=== PATIENT | male | born 1970 | race Caucasian/White ===

== ENCOUNTER 2016-09-04 20:36 | Emergency (ER) | payer SELFPAY ==
[~2016-09-04] VITALS: Ht 175.3 cm; Wt 96.8 kg
[~2016-09-04 20:36] MED LIST: AMLO5TAB2; LISI5TAB7 PO; METO25TA35 PO
[2016-09-04 21:33] LABS: BLOOD UREA NITROGEN 26 mg/dL (7-18)
[2016-09-04 21:38] LABS: IS PT STATUS REG ER OR PRE ER? YES
[2016-09-04 22:27] VITALS: BP 128/95
== END 2016-09-04 22:29 | disposition home or self-care (01) ==
LOC: ED 22:11
DX: T50.905A Adverse effect of unspecified drugs, medicaments and biological substances, initial encounter (principal); R07.89 Other chest pain; I10 Essential (primary) hypertension; Y92.9 Unspecified place or not applicable
CPT/HCPCS: 36415; 71010; 80048; 82040; 83880; 84484; 85025; 93005; 99285

== ENCOUNTER 2016-10-16 21:56 | Emergency (ER) | payer SELFPAY ==
[~2016-10-16] VITALS: Ht 177.8 cm; Wt 94.2 kg
[2016-10-16 23:26] LABS: ASPARTATE AMINO TRANSFERASE 13 U/L (15-37); BLOOD UREA NITROGEN 36 mg/dL (7-18)
[2016-10-16 23:28] LABS: HEMATOCRIT 38.6 % (39.2-51.8); HEMOGLOBIN 12.9 g/dL (13.7-18.0); WHITE BLOOD COUNT 12.1 x10^3/uL (3.4-10)
[2016-10-16 23:32] LABS: IS PT STATUS REG ER OR PRE ER? YES
[2016-10-17] MEDS ORDERED: MAALOX/HYOSCYAMINE/LIDOCAINE 45 ML BTL PO ONE
[2016-10-17] MEDS ORDERED: MAALOX/HYOSCYAMINE/LIDOCAINE 45 ML BTL ONE (00:18)
[2016-10-17 00:19] LABS: PATH.CAST-FLAG NOT PRESENT; SPERM-FLAG NOT PRESENT; SRC-FLAG NOT PRESENT; XTAL-FLAG NOT PRESENT; YLC-FLAG NOT PRESENT
[2016-10-17 00:26] VITALS: BP 120/80
[2016-10-17] MEDS ORDERED: ALBUTEROL/IPRATROPIUM 2.5MG/0.5MG, 3 ML NPPB ONE (00:30)
[2016-10-17] MEDS ORDERED: ALBUTEROL/IPRATROPIUM 2.5MG/0.5MG, 3 ML ONE (00:34)
== END 2016-10-17 01:09 | disposition home or self-care (01) ==
LOC: ED 23:10
DX: J98.01 Acute bronchospasm (principal); R06.2 Wheezing; K21.0 Gastro-esophageal reflux disease with esophagitis; I10 Essential (primary) hypertension
CPT/HCPCS: 36415; 71010; 80053; 81001; 83690; 83880; 84484; 85025; 93005; 94640; 99285; J7620

== ENCOUNTER 2017-02-08 10:03 | Observation (INO) | payer OTHER ==
[~2017-02-08] VITALS: Ht 177.8 cm; Wt 94.8 kg
[2017-02-08] MEDS ORDERED: ASPIRIN 81 MG TABLET CHEW PO ONE (11:00)
[2017-02-08] MEDS ORDERED: MORPHINE SULFATE 4 MG/ML, 1ML IVPush PRN (11:00)
[2017-02-08] MEDS ORDERED: ONDANSETRON 2MG/ML, 2ML IVPush ONE (11:00)
[2017-02-08] MEDS ORDERED: SODIUM CHLORIDE FLUSH 10ML SYR IVF ONE (11:00)
[2017-02-08] MEDS ORDERED: NITROGLYCERIN SINGLE TAB 0.4 MG SL PRN (11:00)
[2017-02-08] MEDS ORDERED: ONDANSETRON 2MG/ML, 2ML ONE (11:26)
[2017-02-08] MEDS ORDERED: ASPIRIN 81 MG TABLET CHEW ONE (11:27)
[2017-02-08] MEDS ORDERED: MORPHINE SULFATE 4 MG/ML, 1ML ONE (11:27)
[2017-02-08 11:34] LABS: ALBUMIN 3.4 g/dL (3.4-5.0); ANION GAP 6 mmol/L (5-15); CALCIUM 8.7 mg/dL (8.5-10.1); CHLORIDE 112 mmol/L (98-107); CREATININE 2.48 mg/dL (0.7-1.3)
[2017-02-08 11:36] LABS: BASOPHILS # (AUTO) 0.06 x10^3/uL (0-0.1); BASOPHILS % (AUTO) 1 % (0-1); EOSINOPHILS # (AUTO) 0.35 x10^3/uL (0-0.4); EOSINOPHILS % (AUTO) 4 % (1-7); LYMPHOCYTES # (AUTO) 1.85 x10^3/uL (1-3.4); LYMPHOCYTES % (AUTO) 23 % (22-44); MD NO; MEAN CORPUSCULAR HEMOGLOBIN 27.6 pg (27.5-34.5); MEAN CORPUSCULAR HGB CONC 33.4 g/dL (33.2-36.2); MEAN CORPUSCULAR VOLUME 82.6 fL (81-97); MEAN PLATELET VOLUME 8.5 fL (7.4-10.4); MONOCYTES # (AUTO) 0.78 x10^3/uL (0.2-0.8); MONOCYTES % (AUTO) 10 % (2-9); NEUTROPHILS # (AUTO) 5.07 x10^3/uL (1.8-6.8); NEUTROPHILS % (AUTO) 63 % (42-75); PLATELET COUNT 294 x10^3/uL (130-400); RED BLOOD COUNT 4.87 x10^6/uL (4.38-5.82); RED CELL DISTRIBUTION WIDTH 13.8 % (9.4-14.8)
[2017-02-08 11:38] LABS: TROPONIN I < 0.015 ng/mL (0.000-0.045)
[2017-02-08] MEDS ORDERED: SODIUM CHLORIDE 0.9% 1,000 ML IV SCH (13:24)
[2017-02-08] MEDS ORDERED: BISACODYL 10 MG SUPP PR PRN (13:30)
[2017-02-08] MEDS ORDERED: hydrALAzine 20 MG/ML, 1ML IVPush PRN (13:30)
[2017-02-08] MEDS ORDERED: ASPIRIN 325 MG TABLET EC PO SCH (13:30)
[2017-02-08] MEDS ORDERED: ONDANSETRON ODT 4 MG PO PRN (13:30)
[2017-02-08] MEDS ORDERED: ACETAMINOPHEN 325 MG TABLET PO PRN (13:30)
[2017-02-08] MEDS ORDERED: NITROGLYCERIN 0.4 MG BOTTLE (25 TABS) SL PRN (13:30)
[2017-02-08] MEDS ORDERED: ONDANSETRON 2MG/ML, 2ML IVPush PRN (13:30)
[2017-02-08] MEDS ORDERED: ACETAMINOPHEN 325 MG TABLET ONE (13:36)
[2017-02-08 15:33] VITALS: BP 128/81
[2017-02-08 15:41] LABS: TROPONIN I < 0.015 ng/mL (0.000-0.045)
[2017-02-08] MEDS ORDERED: LISI-167 PO (15:44)
[2017-02-08] MEDS ORDERED: DOCUSATE 100 MG CAPSULE PO PRN (21:00)
== END 2017-02-08 17:08 | disposition home or self-care (01) ==
LOC: ED 11:14 → EDIP 12:41 → INTOOBSV 12:41 → 5SO 15:16
PROVIDERS: ADMIT Internal Medicine; ATTEND Internal Medicine
DX: R07.89 Other chest pain (principal); I12.9 Hypertensive chronic kidney disease with stage 1 through stage 4 chronic kidney disease, or unspecified chronic kidney disease; N18.3 Chronic kidney disease, stage 3 (moderate); I25.2 Old myocardial infarction; E87.5 Hyperkalemia; E66.9 Obesity, unspecified; Z82.3 Family history of stroke; Z66 Do not resuscitate; Z87.891 Personal history of nicotine dependence; Z82.49 Family history of ischemic heart disease and other diseases of the circulatory system
CPT/HCPCS: 36415; 71045; 80048; 82040; 83880; 84484; 85025; 93005; 96361; 96374; 99285; G0378; J2405; J7030

== ENCOUNTER 2018-04-12 15:03 | Emergency (ER) | payer OTHER ==
[~2018-04-12] VITALS: Ht 177.8 cm; Wt 94.3 kg
[~2018-04-12 15:03] MED LIST changes: +AMLO-150; -AMLO5TAB2; +LISI-167 PO
[2018-04-12 15:20] VITALS: BP 186/96
[2018-04-12] MEDS ORDERED: SODIUM CHLORIDE FLUSH 10ML SYR IVF ONE (15:30)
[2018-04-12 15:57] LABS: BASOPHILS # (AUTO) 0.04 x10^3/uL (0-0.1); BASOPHILS % (AUTO) 0 % (0-1); EOSINOPHILS # (AUTO) 0.43 x10^3/uL (0-0.4); EOSINOPHILS % (AUTO) 5 % (1-7); LYMPHOCYTES # (AUTO) 2.16 x10^3/uL (1-3.4); LYMPHOCYTES % (AUTO) 24 % (22-44); MD NO; MEAN CORPUSCULAR HEMOGLOBIN 27.4 pg (27.5-34.5); MEAN CORPUSCULAR HGB CONC 32.9 g/dL (33.2-36.2); MEAN CORPUSCULAR VOLUME 83.3 fL (81-97); MEAN PLATELET VOLUME 8.9 fL (7.4-10.4); MONOCYTES # (AUTO) 0.53 x10^3/uL (0.2-0.8); MONOCYTES % (AUTO) 6 % (2-9); NEUTROPHILS # (AUTO) 5.84 x10^3/uL (1.8-6.8); NEUTROPHILS % (AUTO) 65 % (42-75); PLATELET COUNT 323 x10^3/uL (130-400); RED CELL DISTRIBUTION WIDTH 13.9 % (9.4-14.8)
[2018-04-12 16:07] LABS: ALANINE AMINOTRANSFERASE 18 U/L (12-78); ALBUMIN 3.4 g/dL (3.4-5.0); ANION GAP 5 mmol/L (5-15); CALCIUM 8.2 mg/dL (8.5-10.1); CHLORIDE 112 mmol/L (98-107); CREATININE 3.33 mg/dL (0.7-1.3)
[2018-04-12 16:10] LABS: ALKALINE PHOSPHATASE 108 U/L (45-117); BILIRUBIN,TOTAL 0.2 mg/dL (0.2-1.0); TOTAL PROTEIN 6.9 g/dL (6.4-8.2)
--- NOTE | 2018-04-12 17:24 | NUR ---
CALLED FOR ROOM, NO ANSWER
--- NOTE | 2018-04-12 18:01 | NUR ---
2ND CALL FOR ROOM, NO ANSWER.
--- NOTE | 2018-04-12 18:23 | NUR ---
3RD CALL FOR ROOM. UNABLE TO LOCATE IN LOBBY.
== END 2018-04-12 18:25 | disposition left against medical advice (07) ==
LOC: ED 18:19
DX: R10.9 Unspecified abdominal pain (principal); R31.9 Hematuria, unspecified; N28.9 Disorder of kidney and ureter, unspecified; R11.0 Nausea; R50.9 Fever, unspecified
CPT/HCPCS: 36415; 74176; 80053; 83690; 85025; 99284

== ENCOUNTER 2019-10-01 01:51 | Emergency (ER) | payer OTHER ==
[~2019-10-01] VITALS: Ht 177.8 cm; Wt 98.7 kg
[2019-10-01 02:03] VITALS: BP 152/87
== END 2019-10-01 02:52 | disposition home or self-care (01) ==
LOC: ED 02:48
DX: H60.12 Cellulitis of left external ear (principal); I10 Essential (primary) hypertension; K21.9 Gastro-esophageal reflux disease without esophagitis
CPT/HCPCS: 99283

== ENCOUNTER 2019-10-23 11:05 | Emergency (ER) | payer OTHER ==
[~2019-10-23] VITALS: Ht 177.8 cm; Wt 97.1 kg
--- NOTE | 2019-10-23 11:25 | NUR ---
THIS IS A 49 YO M W/ C/O DIZZINESSX2 DAYS AND HTN TODAY. PT REPORTS AT HOME SYSTOLIC BP WAS IN 170'S. PT REPORTS TAKING [place] PRESCRIBED. PT REPORTS HEADACHE X3 YEARS, NO NEW SYMPTOMS R/T THIS COMPLAINT. PT RESTING ON GURNEY W/ CALL LIGHT IN NIKKI, ELIZABETH, POOJA. AT BEDSIDE FOR ED EVAL.
[2019-10-23] MEDS ORDERED: MECLIZINE CHEWABLE 25 MG TAB PO ONE (11:30)
[2019-10-23] MEDS ORDERED: MECLIZINE CHEWABLE 25 MG TAB ONE (11:33)
[2019-10-23 11:56] LABS: BASOPHILS # (AUTO) 0.03 x10^3/uL (0-0.1); BASOPHILS % (AUTO) 0 % (0-1); EOSINOPHILS # (AUTO) 0.35 x10^3/uL (0-0.4); EOSINOPHILS % (AUTO) 4 % (1-7); LYMPHOCYTES # (AUTO) 1.63 x10^3/uL (1-3.4); LYMPHOCYTES % (AUTO) 20 % (22-44); MD NO; MEAN CORPUSCULAR HEMOGLOBIN 28.5 pg (27.5-34.5); MEAN CORPUSCULAR HGB CONC 33.2 g/dL (33.2-36.2); MEAN PLATELET VOLUME 8.5 fL (7.4-10.4); MONOCYTES % (AUTO) 6 % (2-9); NEUTROPHILS # (AUTO) 5.51 x10^3/uL (1.8-6.8); NEUTROPHILS % (AUTO) 69 % (42-75); PLATELET COUNT 246 x10^3/uL (130-400); RED BLOOD COUNT 3.82 x10^6/uL (4.38-5.82); RED CELL DISTRIBUTION WIDTH 14.8 % (9.4-14.8)
--- NOTE | 2019-10-23 12:03 | NUR ---
PT TO CT.
[2019-10-23 12:07] LABS: ALBUMIN 3.3 g/dL (3.4-5.0); ANION GAP 8 mmol/L (5-15); CALCIUM 9.6 mg/dL (8.5-10.1); CHLORIDE 109 mmol/L (98-107); CREATININE 4.75 mg/dL (0.7-1.3)
--- NOTE | 2019-10-23 12:16 | NUR ---
[place] SUPPLEMENTAL MANAGER IN ROOM FOR EAR [facility]AV[facility].
--- NOTE | 2019-10-23 12:36 | NUR ---
ALL TESTS RESULTED. PT IS RESTING ON GURNEY W/ CALL LIGHT IN REACH AND FAMILY AT BEDSIDE, NADN. AWAITING RECHECK.
--- NOTE | 2019-10-23 12:45 | NUR ---
PT RESTING ON GURNEY, CHANGED INTO CLOTHES. RESP EVEN AND UNLABORED, NADN. AWAITING DC PPWK.
[2019-10-23 12:46] VITALS: BP 117/90
--- NOTE | 2019-10-23 13:50 | NUR ---
AWAITING DC PPWK.
--- NOTE | 2019-10-23 13:56 | NUR ---
Patient given discharge instructions and they have confirmed that they understand the instructions. Patient ambulatory with steady gait.
== END 2019-10-23 13:58 | disposition home or self-care (01) ==
LOC: ED 13:00
DX: I12.9 Hypertensive chronic kidney disease with stage 1 through stage 4 chronic kidney disease, or unspecified chronic kidney disease (principal); N18.9 Chronic kidney disease, unspecified; R42 Dizziness and giddiness; R51 Headache; I10 Essential (primary) hypertension
CPT/HCPCS: 36415; 70450; 80048; 82040; 85025; 93005; 99285

== ENCOUNTER 2019-11-29 15:19 | Emergency (ER) | payer OTHER ==
[~2019-11-29] VITALS: Ht 177.8 cm; Wt 96.5 kg
[2019-11-29 16:14] VITALS: BP 124/83
--- NOTE | 2019-11-29 17:39 | NUR ---
No show to revitalize at 1739. first call
--- NOTE | 2019-11-29 17:48 | NUR ---
pt signed request for dc from triage.
== END 2019-11-29 17:53 | disposition left against medical advice (07) ==
LOC: ED 15:45
DX: M54.5 Low back pain (principal)
CPT/HCPCS: 99281

== ENCOUNTER 2019-12-28 04:05 | Emergency (ER) | payer OTHER ==
[~2019-12-28] VITALS: Ht 177.8 cm; Wt 92.9 kg
--- NOTE | 2019-12-28 04:30 | NUR ---
THIS IS A 49Y M THAT WAS AWOKEN FROM SLEEP WITH L SIDED/ STERNAL CP. PT ALSO C/O COUGH X2WKS. HE ALSO STS HE DOES NOT KNOW IF HE HAS BEEN AROUND ANYONE WITH COVID HE PLAYS SOCCER WITH A GROUP. PT CONNECTED TO ALL MONITORING VSS NADN, AT THIS TIME. AWAITING ORDERS
[2019-12-28] MEDS ORDERED: ASPIRIN 81 MG TABLET CHEW PO ONE (05:00)
[2019-12-28] MEDS ORDERED: ASPIRIN 81 MG TABLET CHEW ONE (05:06)
[2019-12-28] MEDS ORDERED: ONDANSETRON ODT 4 MG ONE (05:08)
[2019-12-28 05:10] LABS: BASOPHILS % (AUTO) 1 % (0-1); EOSINOPHILS % (AUTO) 0 % (1-7); LYMPHOCYTES % (AUTO) 19 % (22-44); MEAN CORPUSCULAR HEMOGLOBIN 28.2 pg (27.5-34.5); MEAN CORPUSCULAR HGB CONC 32.9 g/dL (33.2-36.2); MEAN PLATELET VOLUME 8.3 fL (7.4-10.4); MONOCYTES % (AUTO) 11 % (2-9); NEUTROPHILS % (AUTO) 69 % (42-75); PLATELET COUNT 246 x10^3/uL (130-400); RED BLOOD COUNT 4.34 x10^6/uL (4.38-5.82); RED CELL DISTRIBUTION WIDTH 15.1 % (9.4-14.8)
--- NOTE | 2019-12-28 05:11 | NUR ---
PT MEDICATED PER APR, PT ALSO REPORTS NAUSEA, ADDITIONAL ORDERS AT THIS TIME
[2019-12-28 05:14] LABS: MD NO
[2019-12-28 05:20] LABS: ALBUMIN 3.4 g/dL (3.4-5.0); ANION GAP 4 mmol/L (5-15); CALCIUM 8.9 mg/dL (8.5-10.1); CHLORIDE 110 mmol/L (98-107)
[2019-12-28 05:27] LABS: ALANINE AMINOTRANSFERASE 46 U/L (12-78); ALKALINE PHOSPHATASE 73 U/L (45-117); BILIRUBIN,TOTAL 0.5 mg/dL (0.2-1.0); CREATININE 5.02 mg/dL (0.7-1.3); TOTAL PROTEIN 7.6 g/dL (6.4-8.2); TROPONIN I < 0.015 ng/mL (0.000-0.045)
[2019-12-28] MEDS ORDERED: ONDANSETRON ODT 4 MG PO ONE (05:30)
[2019-12-28] MEDS ORDERED: LORazepam 1MG TABLET ONE (06:09)
--- NOTE | 2019-12-28 06:12 | NUR ---
PT MEDICATED PER MAR
[2019-12-28] MEDS ORDERED: LORazepam 1MG TABLET PO ONE (06:30)
--- NOTE | 2019-12-28 07:00 | NUR ---
TOOK REPORT FROM MARKIE CONLEY RN, ASSUME CARE AT THIS TIME.
--- NOTE | 2019-12-28 07:19 | NUR ---
WENT OVER POC. LAB TO DRAW TROP AT 0800, AWATING DIET TRAY PER ORDER. PT RESTING ON CONT BASEBALL SEWER HAND, SPO2, BP Q 30 MIN, SIDE RAIS UP X2, CALL LIGHT IN REACH. DENIES ANY PAIN.
[2019-12-28 08:41] LABS: TROPONIN I < 0.015 ng/mL (0.000-0.045)
[2019-12-28 09:41] VITALS: BP 124/74
== END 2019-12-28 09:44 | disposition home or self-care (01) ==
LOC: ED 09:35
DX: U07.1 COVID-19 (principal); B34.9 Viral infection, unspecified; R07.9 Chest pain, unspecified; R94.31 Abnormal electrocardiogram [ECG] [EKG]; K21.9 Gastro-esophageal reflux disease without esophagitis; I10 Essential (primary) hypertension
CPT/HCPCS: 36415; 71045; 80053; 83880; 84484; 85025; 85379; 87635; 93005; 99285; Q0162

== ENCOUNTER 2020-01-01 04:07 | Emergency (ER) | payer OTHER ==
[~2020-01-01] VITALS: Ht 177.8 cm; Wt 92.4 kg
[2020-01-01 05:23] LABS: BASOPHILS % (AUTO) 1 % (0-1); EOSINOPHILS % (AUTO) 1 % (1-7); LYMPHOCYTES % (AUTO) 20 % (22-44); MEAN CORPUSCULAR HEMOGLOBIN 28.3 pg (27.5-34.5); MEAN CORPUSCULAR HGB CONC 33.1 g/dL (33.2-36.2); MEAN PLATELET VOLUME 8.5 fL (7.4-10.4); MONOCYTES % (AUTO) 13 % (2-9); NEUTROPHILS % (AUTO) 66 % (42-75); PLATELET COUNT 252 x10^3/uL (130-400); RED BLOOD COUNT 4.06 x10^6/uL (4.38-5.82); RED CELL DISTRIBUTION WIDTH 14.7 % (9.4-14.8)
[2020-01-01 05:27] LABS: MD NO
[2020-01-01] MEDS ORDERED: ONDANSETRON ODT 4 MG PO ONE (05:30)
[2020-01-01 05:34] LABS: ALANINE AMINOTRANSFERASE 40 U/L (12-78); ALBUMIN 3.1 g/dL (3.4-5.0); ANION GAP 11 mmol/L (5-15); CALCIUM 8.5 mg/dL (8.5-10.1); CHLORIDE 109 mmol/L (98-107); CREATININE 5.32 mg/dL (0.7-1.3)
[2020-01-01 05:38] LABS: ALKALINE PHOSPHATASE 66 U/L (45-117); BILIRUBIN,TOTAL 0.4 mg/dL (0.2-1.0); TOTAL PROTEIN 7.4 g/dL (6.4-8.2); TROPONIN I < 0.015 ng/mL (0.000-0.045)
[2020-01-01] MEDS ORDERED: ONDANSETRON ODT 4 MG ONE (05:38)
--- NOTE | 2020-01-01 05:57 | NUR ---
PT BUN HIGH, PT WILL RECIEVE 1 L NS PRIOR TO DC PER PROVIDER
[2020-01-01] MEDS ORDERED: SODIUM CHLORIDE FLUSH 10ML SYR IVF ONE (06:00)
[2020-01-01] MEDS ORDERED: SODIUM CHLORIDE 0.9% 1,000ML IVBOLUS ONE (06:00)
--- NOTE | 2020-01-01 06:53 | NUR ---
report to tim
[2020-01-01 07:39] VITALS: BP 142/91
== END 2020-01-01 08:00 | disposition home or self-care (01) ==
LOC: ED 05:46
DX: I12.9 Hypertensive chronic kidney disease with stage 1 through stage 4 chronic kidney disease, or unspecified chronic kidney disease (principal); N18.9 Chronic kidney disease, unspecified; K21.9 Gastro-esophageal reflux disease without esophagitis; B34.9 Viral infection, unspecified; R07.9 Chest pain, unspecified
CPT/HCPCS: 36415; 71045; 80053; 84484; 85025; 93005; 96360; 99285; J7030; Q0162

== ENCOUNTER 2020-03-19 16:32 | Emergency (ER) | payer OTHER ==
[~2020-03-19] VITALS: Ht 177.8 cm; Wt 95.1 kg
[2020-03-19 17:47] LABS: BASOPHILS % (AUTO) 1 % (0-1); EOSINOPHILS % (AUTO) 2 % (1-7); LYMPHOCYTES % (AUTO) 21 % (22-44); MEAN CORPUSCULAR HEMOGLOBIN 27.9 pg (27.5-34.5); MEAN CORPUSCULAR HGB CONC 32.6 g/dL (33.2-36.2); MEAN PLATELET VOLUME 8.1 fL (7.4-10.4); MONOCYTES % (AUTO) 8 % (2-9); NEUTROPHILS % (AUTO) 68 % (42-75); PLATELET COUNT 301 x10^3/uL (130-400); RED BLOOD COUNT 4.12 x10^6/uL (4.38-5.82); RED CELL DISTRIBUTION WIDTH 16.9 % (9.4-14.8)
[2020-03-19 17:50] LABS: MD NO
[2020-03-19 17:59] LABS: MICROSCOPIC AUTO
[2020-03-19 18:01] VITALS: BP 170/100
[2020-03-19 18:08] LABS: ALANINE AMINOTRANSFERASE 21 U/L (12-78); ANION GAP 9 mmol/L (5-15); CALCIUM 8.5 mg/dL (8.5-10.1); CHLORIDE 111 mmol/L (98-107)
[2020-03-19] MEDS ORDERED: FURO20TA3 PO (18:09)
[2020-03-19] MEDS ORDERED: SODI650T PO (18:09)
[2020-03-19] MEDS ORDERED: LOSA100T14 PO (18:09)
[2020-03-19] MEDS ORDERED: CALC0.254 PO (18:09)
[2020-03-19] MEDS ORDERED: ALLO300T PO (18:09)
[2020-03-19 18:10] LABS: ALKALINE PHOSPHATASE 79 U/L (45-117); BILIRUBIN,TOTAL 0.5 mg/dL (0.2-1.0)
[2020-03-19] MEDS ORDERED: LORazepam 1MG TABLET PO ONE (18:30)
[2020-03-19] MEDS ORDERED: ACETAMINOPHEN 500 MG TABLET PO ONE (18:30)
[2020-03-19] MEDS ORDERED: LORazepam 1MG TABLET ONE (18:57)
[2020-03-19] MEDS ORDERED: ACETAMINOPHEN 500 MG TABLET ONE (18:57)
--- NOTE | 2020-03-19 19:01 | NUR ---
Report given to RACHEAL Sage and care transferred for shift change. RN aware of new med orders present.
--- NOTE | 2020-03-19 19:02 | NUR ---
ATTEMPTED TO MEDICATE PT. FOUND ROOM EMPTY, GOWN ON BED. WILL MONITOR FOR PTS RETURN.
--- NOTE | 2020-03-19 20:19 | NUR ---
CT CAME TO GET PT, UNABLE TO LOCATE. PT HAS NOT BEEN SEEN IN ER SINCE ONCOMING OF SHIFT. AWARE.
== END 2020-03-19 20:21 | disposition left against medical advice (07) ==
LOC: ED 20:15
DX: I12.9 Hypertensive chronic kidney disease with stage 1 through stage 4 chronic kidney disease, or unspecified chronic kidney disease (principal); N18.9 Chronic kidney disease, unspecified; K21.9 Gastro-esophageal reflux disease without esophagitis; R31.9 Hematuria, unspecified; E87.5 Hyperkalemia; R10.9 Unspecified abdominal pain
CPT/HCPCS: 36415; 80053; 81001; 85025; 99283

== ENCOUNTER 2020-04-07 13:33 | Emergency (ER) | payer OTHER ==
[~2020-04-07] VITALS: Ht 177.8 cm; Wt 87.0 kg
[~2020-04-07 13:33] MED LIST changes: +ALLO300T PO; +CALC0.254 PO; +FURO20TA3 PO; +LOSA100T14 PO; +SODI650T PO
--- NOTE | 2020-04-07 14:30 | NUR ---
Patient is resting comfortably in bed. Vital Signs within normal limits.
--- NOTE | 2020-04-07 15:02 | NUR ---
BREAK RN: RN ANSWERED CALL LIGHT. PT STATING WANTS TO GO HOME AND LAY DOWN. RN EXPLAINED TO PT THAT A PROVIDER WILL EVALUATE HIM SOON. PT STATES HAS A 10/10 HEADACHE. RN TO SEE IF A PROVIDER WILL COME EVALUATE.
--- NOTE | 2020-04-07 15:13 | NUR ---
BREAK RN: PA AT BEDSIDE.
[2020-04-07 15:26] VITALS: BP 169/70
[2020-04-07] MEDS ORDERED: SODIUM CHLORIDE 0.9% 1,000ML IVBOLUS ONE (15:30)
[2020-04-07 15:56] LABS: BASOPHILS % (AUTO) 1 % (0-1); EOSINOPHILS % (AUTO) 3 % (1-7); LYMPHOCYTES % (AUTO) 26 % (22-44); MEAN CORPUSCULAR HEMOGLOBIN 27.7 pg (27.5-34.5); MEAN CORPUSCULAR HGB CONC 32.5 g/dL (33.2-36.2); MEAN PLATELET VOLUME 8.4 fL (7.4-10.4); MONOCYTES % (AUTO) 6 % (2-9); NEUTROPHILS % (AUTO) 64 % (42-75); PLATELET COUNT 349 x10^3/uL (130-400); RED BLOOD COUNT 4.29 x10^6/uL (4.38-5.82); RED CELL DISTRIBUTION WIDTH 16.3 % (9.4-14.8)
[2020-04-07 16:03] LABS: MD NO
[2020-04-07 16:04] LABS: ALBUMIN 3.6 g/dL (3.4-5.0); ANION GAP 5 mmol/L (5-15); CALCIUM 9.2 mg/dL (8.5-10.1); CHLORIDE 112 mmol/L (98-107)
[2020-04-07 16:10] LABS: ALANINE AMINOTRANSFERASE 17 U/L (12-78); ALKALINE PHOSPHATASE 88 U/L (45-117); BILIRUBIN,TOTAL 0.3 mg/dL (0.2-1.0); CREATININE 4.78 mg/dL (0.7-1.3); TOTAL PROTEIN 7.4 g/dL (6.4-8.2); TROPONIN I < 0.015 ng/mL (0.000-0.045)
== END 2020-04-07 17:31 | disposition home or self-care (01) ==
LOC: ED 17:00
DX: N18.9 Chronic kidney disease, unspecified (principal); G51.0 Bell's palsy; R07.89 Other chest pain; R53.1 Weakness; K21.9 Gastro-esophageal reflux disease without esophagitis; I10 Essential (primary) hypertension; R00.9 Unspecified abnormalities of heart beat; Z87.891 Personal history of nicotine dependence
CPT/HCPCS: 36415; 70450; 71045; 80053; 84484; 85025; 93005; 96360; 99285; J7030

== ENCOUNTER 2020-08-06 16:59 | Emergency (ER) | payer OTHER ==
[~2020-08-06] VITALS: Ht 177.8 cm; Wt 93.5 kg
--- NOTE | 2020-08-06 18:39 | NUR ---
EXECUTIVE COORDINATOR: PT TO ROOM FROM [place], GAIT STEADY.
--- NOTE | 2020-08-06 18:59 | NUR ---
Juan ellis in [facility] - 08/06/20 at 1906 by LUIS FERNANDO REPORT RECEIVED FROM ENDY SPRINGER
--- NOTE | 2020-08-06 19:06 | NUR ---
INITIAL PT CONTACT. PT PRESENTS TO ED C/O LEFT LOWER ABD PAIN X3DAYS. "I HAD DIALYSIS CATHETER THERE 3 YEARS AGO AND THATS WHERE IT HURTS." PT REPORTS NORMAL URINATION AND BOWEL MOVEMENTS FOR HIMSELF. PT DENIES ANY OTHER COMPLAINTS AT THIS TIME. PT SITTING UPRIGHT ON GURNEY, NADN, VSS. PT DENIES ANY NEEDS AT THIS TIME. CALL LIGHT AND PERSONAL BELONGINGS WITHIN REACH. FAMILY AT BEDSIDE. AWAITING ERP
[2020-08-06] MEDS ORDERED: SODIUM CHLORIDE FLUSH 10ML SYR IVF ONE (20:00)
[2020-08-06 20:12] LABS: BASOPHILS % (AUTO) 1 % (0-1); EOSINOPHILS % (AUTO) 4 % (1-7); LYMPHOCYTES % (AUTO) 25 % (22-44); MEAN CORPUSCULAR HEMOGLOBIN 28.3 pg (27.5-34.5); MEAN PLATELET VOLUME 8.3 fL (7.4-10.4); MONOCYTES % (AUTO) 6 % (2-9); NEUTROPHILS % (AUTO) 64 % (42-75); PLATELET COUNT 313 x10^3/uL (130-400); RED BLOOD COUNT 3.92 x10^6/uL (4.38-5.82); RED CELL DISTRIBUTION WIDTH 15.8 % (9.4-14.8)
--- NOTE | 2020-08-06 20:17 | NUR ---
PT RETURNED FROM CT
[2020-08-06 20:19] LABS: MICROSCOPIC AUTO
[2020-08-06 20:25] LABS: ALANINE AMINOTRANSFERASE 21 U/L (12-78); ALBUMIN 3.5 g/dL (3.4-5.0); ANION GAP 11 mmol/L (5-15); CALCIUM 8.8 mg/dL (8.5-10.1); CHLORIDE 110 mmol/L (98-107); CREATININE 5.39 mg/dL (0.7-1.3)
[2020-08-06 20:27] LABS: ALKALINE PHOSPHATASE 110 U/L (45-117); BILIRUBIN,TOTAL 0.2 mg/dL (0.2-1.0); TOTAL PROTEIN 7.4 g/dL (6.4-8.2)
[2020-08-06 22:15] VITALS: BP 116/72
--- NOTE | 2020-08-06 22:15 | NUR ---
Patient given discharge instructions and they have confirmed that they understand the instructions. Patient ambulatory with steady gait.
== END 2020-08-06 22:16 | disposition home or self-care (01) ==
LOC: ED 19:17
DX: R10.32 Left lower quadrant pain (principal); I12.9 Hypertensive chronic kidney disease with stage 1 through stage 4 chronic kidney disease, or unspecified chronic kidney disease; N18.30 Chronic kidney disease, stage 3 unspecified; K21.9 Gastro-esophageal reflux disease without esophagitis
CPT/HCPCS: 36415; 74176; 80053; 81001; 83690; 85025; 99284